=== PATIENT | female | born 1950 | race Caucasian/White ===

== ENCOUNTER 2020-02-18 13:02 | Emergency (ER) | payer MEDICARE, OTHER, SELFPAY ==
[2020-02-18 13:08] VITALS: BP 185/79; PULSE 87; RESP 18; TEMP 36.4; O2SAT 99; BMI 21.1
--- NOTE | 2020-02-18 13:26 | DI.RAD.S_ITS ---
PROCEDURE: XR CHEST 2V INDICATIONS: chest pain TECHNIQUE: 2 views of the chest were acquired. COMPARISON: None. FINDINGS: Surgical changes and devices: None. Lungs and pleura: Blunting of the posterior costophrenic angle on the lateral view it is evident. There is a transition of density identified within the retrocardiac region on the frontal view. Blunting of left costophrenic angle on the frontal view is also present. Mediastinum: Mediastinal contours are normal. Heart size is normal. Bones and chest wall: No suspicious bony abnormalities. Soft tissues appear unremarkable. IMPRESSION: Left basilar atelectasis versus pneumonia with an associated small effusion. Dictated by: Robby Munguia M.D. on 02/18/2020 at 13:16 Approved by: Robby Munguia M.D. on 02/18/2020 at 13:31
[2020-02-18 13:48] LABS: Add Manual Diff / Slide Review NO; Basophils Absolute Auto 0 /uL (0-100); Basophils Percent Auto 0.2 % (0-2); Eosinophils Absolute Auto 100 /uL (0-450); Eosinophils Percent Auto 0.7 % (2-4); Hematocrit 37.9 % (36-46); Hemoglobin 12.8 g/dL (12.0-16.0); Lymphocytes Absolute Auto 2200 /uL (1100-4500); Lymphocytes Percent Auto 29.3 % (25-40); Mean Corpuscular HGB Conc 33.7 % (30-36); Mean Corpuscular Hemoglobin 30.6 PG (26-34); Monocytes Absolute Auto 600 /uL (0-900); Monocytes Percent Auto 8.2 % (3-14); Neutrophils Absolute Auto 4600 /uL (1500-7000); Neutrophils Percent Auto 61.6 % (50-75); Platelet Count 316 X10^3/uL (150-400); Red Blood Cell Count 4.17 X10^6/uL (4.0-5.2); Red Cell Distribution Width 14.1 % (11.6-14.8); White Blood Cell Count 7.4 X10^3/uL (4.5-11.0)
--- NOTE | 2020-02-18 13:49 | ED_ITS ---
HPI - Arrhythmia/Palpitations <GRIFFIN Dominguez - Last Filed: 02/18/20 15:51> General Chief Complaint: Arrhythmia/Palpitations Stated Complaint: heart/ not beating right Time Seen by Provider: 02/18/20 13:08 Source: patient Mode of arrival: Ambulatory Limitations: no limitations History of Present Illness HPI narrative: The patient is a 69-year-old female current smoker of ?I do not t hink my heart is beating correctly.She states she believes this because she can no longer your her heartbeat. She states she has always been able to hear her heartbeat, though was not able to hear it starting yesterday morning. She denies any chest pain or shortness of breath. She feels as though she is very weak since she stopped being able to hear her heartbeat. She denies any abdominal pain nausea vomiting diarrhea cough congestion. She states that she was able to feel it when she put her hand on her chest, and she no longer can feel her heart beat. She states and sometimes her heart rhythm is regular and she has noticed swelling in her lower extremities and has been on and off for the past several months. Review of Systems <GRIFFIN Dominguez - Last Filed: 02/18/20 15:51> Review of Systems Narrative: GENERAL: Denies chills, fatigue, malaise, fever, sweats. HEENT: Denies sinus pain, ear pain, sore throat, difficulty swallowing, dizziness. RESPIRATORY: Denies dyspnea, cough, wheezing, hemoptysis, sputum. CARDIOVASCULAR: See HPI GASTROINTESTINAL: Denies nausea, vomiting, abdominal pain, diarrhea, constipation, melena. : Denies dysuria, frequency, incontinence, hematuria, urinary retention. MUSCULOSKELETAL: denies weakness, joint pain, or bony pain SKIN: Denies rash, skin lesions, or other NEUROLOGIC: Denies weakness, headache, numbness, change in speech, confusion, seizures, incoordination. PSYCHIATRIC: No concerning psychosocial issues. 12 point review of systems is negative except for those stated above Patient History <GUMARO Dominguez - Last Filed: 02/18/20 15:51> Social History Smoking Status: Current every day smoker Smoking Status: Current every day smoker alcohol intake frequency: 0-2 drinks per day Substance Use Type: does not use Exam <GUMARO Dominguez - Last Filed: 02/18/20 15:51> Narrative Exam Narrative: GENERAL: Thin female in no acute distress HEAD: Atraumatic. Normocephalic. No temporal or scalp tenderness. EYES: Pupils equal round and reactive. Extraocular motions intact. No scleral icterus. No injection or drainage. ENT: Nose without bleeding, purulent drainage or septal hematoma. Throat without erythema, tonsillar hypertrophy or exudate. Uvula midline. Airway patent. Bilateral TMs pearly buenrostro, slightly bulging with no erythema. NECK: Trachea midline. No JVD or lymphadenopathy Cardiac: regular rate and rhythm RESPIRATORY: Clear to auscultation. Breath sounds equal bilaterally. No wheezes, rales, or rhonchi. No cough. No increased respiratory effort. No accessory use. Speaking sentences. GASTROINTESTINAL: Abdomen soft, non-tender, nondistended. No hepato-splenomegaly, or palpable masses. No guarding. EXTREMITIES: No clubbing, cyanosis, or edema. No joint tenderness, effusion, or edema noted. BACK: Nontender without deformity or crepitance. No flank tenderness. NEURO: AOx3. SKIN: No rash or erythema. Initial Vital Signs Initial Vital Signs: Vital Signs Temperature 97.6 F 02/18/20 13:08 Pulse Rate 87 02/18/20 13:08 Respiratory Rate 18 02/18/20 13:08 Blood Pressure 185/79 H 02/18/20 13:08 Pulse Oximetry 99 02/18/20 13:08 <Maria G Brito DO - Last Filed: 02/18/20 16:02> Initial Vital Signs Initial Vital Signs: Vital Signs Temperature 97.6 F 02/18/20 13:08 Pulse Rate 87 02/18/20 13:08 Respiratory Rate 18 02/18/20 13:08 Blood Pressure 185/79 H 02/18/20 13:08 Pulse Oximetry 99 02/18/20 13:08 Course <GUMARO Dominguez - Last Filed: 02/18/20 15:51> Orders Ordered: ED Orders 02/18/20 13:18 Amylase Stat Complete Blood Count AUTO DIFF Stat Comprehensive Metabolic Panel Stat Lipase Stat NT-proBNP (BNP-Adult 18+) Stat Partial Thromboplastin Time Stat Prothrombin Time INR Stat Troponin & CK Cardiac Panel Stat 02/18/20 13:20 EKG-12 Lead Stat 02/18/20 13:26 XR chest 2V Stat Vital Signs Vital signs: Vital Signs - 8 hr 02/18/20 13:08 02/18/20 13:50 02/18/20 14:49 Temperature 97.6 F Pulse Rate 87 64 62 Respiratory Rate 18 12 18 Blood Pressure 185/79 H Blood Pressure [Left Arm] 146/67 H 142/70 H Pulse Oximetry 99 99 98 <Maria G Brito DO - Last Filed: 02/18/20 16:02> Orders Ordered: ED Orders 02/18/20 13:18 Amylase Stat Complete Blood Count AUTO DIFF Stat Comprehensive Metabolic Panel Stat Lipase Stat NT-proBNP (BNP-Adult 18+) Stat Partial Thromboplastin Time Stat Prothrombin Time INR Stat Troponin & CK Cardiac Panel Stat 02/18/20 13:20 EKG-12 Lead Stat 02/18/20 13:26 XR chest 2V Stat Vital Signs Vital signs: Vital Signs - 8 hr 02/18/20 13:08 02/18/20 13:50 02/18/20 14:49 Temperature 97.6 F Pulse Rate 87 64 62 Respiratory Rate 18 12 18 Blood Pressure 185/79 H Blood Pressure [Left Arm] 146/67 H 142/70 H Pulse Oximetry 99 99 98 MDM - Arrhythmia/Palpitations <GRIFFIN DominguezBC - Last Filed: 02/18/20 15:51> Lab Data Result diagrams: 02/18/20 13:18 02/18/20 13:18 Labs: Lab Results 02/18/20 02/18/20 02/18/20 Range/Units 13:18 13:18 13:18 WBC 7.4 (4.5-11.0) X10^3/uL RBC 4.17 (4.0-5.2) X10^6/uL Hgb 12.8 (12.0-16.0) g/dL Hct 37.9 (36-46) % MCV 91.0 (80-100) fL MCH 30.6 (26-34) PG MCHC 33.7 (30-36) % RDW 14.1 (11.6-14.8) % Plt Count 316 (150-400) X10^3/uL Neut % (Auto) 61.6 (50-75) % Lymph % (Auto) 29.3 (25-40) % [place] % (Auto) 8.2 (3-14) % Eos % (Auto) 0.7 L (2-4) % Baso % (Auto) 0.2 (0-2) % Neut # (Auto) 4600 (3842-5279) /uL Lymph # (Auto) 2200 (8050-3038) /uL [place] # (Auto) 600 (0-900) /uL Eos # (Auto) 100 (0-450) /uL Baso # (Auto) 0 (0-100) /uL PT 12.1 (10.1-12.7) SECONDS INR 1.1 (0.9-1.3) APTT 36 (26.4-36.2) SECONDS Sodium (137-145) mmol/L Potassium (3.4-5.1) mmol/L Chloride (98-107) mmol/L Carbon Dioxide (22-32) mmol/L BUN (7-17) mg/dL Creatinine (0.52-1.04) mg/dL Estimated GFR (>60) mL/min BUN/Creatinine Ratio (6-22) Glucose (80-110) mg/dL Calcium (8.4-10.2) mg/dL Total Bilirubin (0.2-1.3) mg/dL AST (14-36) IU/L ALT (<35) IU/L Alkaline Phosphatase (38-126) U/L Total Creatine Kinase (30-135) U/L CK-MB (CK-2) CK-MB (CK-2) Rel Index Troponin I (0.01-0.034) ng/mL NT-Pro-B Natriuret Pep 70 (<125) pg/mL Total Protein (6.3-8.2) g/dL Albumin (3.5-5.0) g/dL Globulin (1.7-4.1) g/dL Albumin/Globulin Ratio (1.0-2.8) Amylase (30-110) U/L Lipase (23-300) U/L 02/18/20 02/18/20 Range/Units 13:18 13:18 WBC (4.5-11.0) X10^3/uL RBC (4.0-5.2) X10^6/uL Hgb (12.0-16.0) g/dL Hct (36-46) % MCV (80-100) fL MCH (26-34) PG MCHC (30-36) % RDW (11.6-14.8) % Plt Count (150-400) X10^3/uL Neut % (Auto) (50-75) % Lymph % (Auto) (25-40) % [place] % (Auto) (3-14) % Eos % (Auto) (2-4) % Baso % (Auto) (0-2) % Neut # (Auto) (8244-5119) /uL Lymph # (Auto) (8002-5434) /uL [place] # (Auto) (0-900) /uL Eos # (Auto) (0-450) /uL Baso # (Auto) (0-100) /uL PT (10.1-12.7) SECONDS INR (0.9-1.3) APTT (26.4-36.2) SECONDS Sodium 130 L (137-145) mmol/L Potassium 3.6 (3.4-5.1) mmol/L Chloride 94 L (98-107) mmol/L Carbon Dioxide 30 (22-32) mmol/L BUN 8 (7-17) mg/dL Creatinine 0.49 L (0.52-1.04) mg/dL Estimated GFR > 60.0 (>60) mL/min BUN/Creatinine Ratio 16.3 (6-22) Glucose 120 H (80-110) mg/dL Calcium 9.4 (8.4-10.2) mg/dL Total Bilirubin 0.6 (0.2-1.3) mg/dL AST 25 (14-36) IU/L ALT 13 (<35) IU/L Alkaline Phosphatase 89 (38-126) U/L Total Creatine Kinase 61 (30-135) U/L CK-MB (CK-2) TNP CK-MB (CK-2) Rel Index TNP Troponin I < 0.012 (0.01-0.034) ng/mL NT-Pro-B Natriuret Pep (<125) pg/mL Total Protein 7.3 (6.3-8.2) g/dL Albumin 4.3 (3.5-5.0) g/dL Globulin 3.0 (1.7-4.1) g/dL Albumin/Globulin Ratio 1.4 (1.0-2.8) Amylase 67 (30-110) U/L Lipase 37 (23-300) U/L Imaging Data Chest x-ray: Radiologist's Impresson: [address] [place] [id number] XRay Report Signed Patient: Kirstin Cruz [facility]#: [id number] : 2Acct:[id number] Age/Sex: 69 / FDate of Service: 02/18/20 Loc: ED Accession Number: [id number] Procedure: XR chest 2V Ordering Provider: Maria G Desai PROCEDURE: XR CHEST 2V INDICATIONS: chest pain TECHNIQUE: 2 views of the chest were acquired. COMPARISON: None. FINDINGS: Surgical changes and devices: None. Lungs and pleura: Blunting of the posterior costophrenic angle on the lateral view it is evident. There is a transition of density identified within the retrocardiac region on the frontal view. Blunting of left costophrenic angle on the frontal view is also present. Mediastinum: Mediastinal contours are normal. Heart size is normal. Bones and chest wall: No suspicious bony abnormalities. Soft tissues appear unremarkable. IMPRESSION: Left basilar atelectasis versus pneumonia with an associated small effusion. Dictated by: Robby Munguia M.D. on 02/18/2020 at 13:16 Approved by: Robby Munguia M.D. on 02/18/2020 at 13:31 ECG Data Attestation: I personally reviewed and interpreted this ECG as follows: Interpretation: Sinus rhythm. Ventricular rate 69. P.r. interval 158. QRS 91. No ectopy noted. viewed by Dr Alisha BEE Narrative Medical decision making narrative: The patient is a 69-year-old female who presents with a chief complaint of ?I can no longer here my heartbeat in my ears.The patient has a normal EKG, negative troponin, negative BNP and is no acute distress throughout her stay in the emergency department. Her chest x-ray is concerning of left lower atelectasis versus pneumonia; given that she has no shortness of breath, no cough, no productive cough over believe it is atelectasis. She has been hemodynamically stable, normotensive, oxygenating well and a normal sinus rhythm. I cannot exactly specify why she no longer hears her heartbeat, but evaluation today helps rule out any acute cardiac dysfunction. She does have some bulging with her tympanic membranes, low no erythema cell not treat for otitis media at this point time. I discussed that using NeilMed sinus rinse, Flonase etcetera to decrease pressure might be bene ficial. The patient adamantly states that she does not want to take any medications if she does not need to. The patient appears to be somewhat dissatisfied that I am not able to specifically identify why she can no longer here for heartbeat. I discussed at length the importance of following up with primary care provider in the next few days. Discussed coming back to the emergency department for any acute concerns such as chest pain, shortness of breath etcetera. <Maria G Brito, DO - Last Filed: 02/18/20 16:02> Lab Data Labs: Lab Results 02/18/20 02/18/20 02/18/20 Range/Units 13:18 13:18 13:18 WBC 7.4 (4.5-11.0) X10^3/uL RBC 4.17 (4.0-5.2) X10^6/uL Hgb 12.8 (12.0-16.0) g/dL Hct 37.9 (36-46) % MCV 91.0 (80-100) fL MCH 30.6 (26-34) PG MCHC 33.7 (30-36) % RDW 14.1 (11.6-14.8) % Plt Count 316 (150-400) X10^3/uL Neut % (Auto) 61.6 (50-75) % Lymph % (Auto) 29.3 (25-40) % [place] % (Auto) 8.2 (3-14) % Eos % (Auto) 0.7 L (2-4) % Baso % (Auto) 0.2 (0-2) % Neut # (Auto) 4600 (0162-5513) /uL Lymph # (Auto) 2200 (6103-7396) /uL [place] # (Auto) 600 (0-900) /uL Eos # (Auto) 100 (0-450) /uL Baso # (Auto) 0 (0-100) /uL PT 12.1 (10.1-12.7) SECONDS INR 1.1 (0.9-1.3) APTT 36 (26.4-36.2) SECONDS Sodium (137-145) mmol/L Potassium (3.4-5.1) mmol/L Chloride (98-107) mmol/L Carbon Dioxide (22-32) mmol/L BUN (7-17) mg/dL Creatinine (0.52-1.04) mg/dL Estimated GFR (>60) mL/min BUN/Creatinine Ratio (6-22) Glucose (80-110) mg/dL Calcium (8.4-10.2) mg/dL Total Bilirubin (0.2-1.3) mg/dL AST (14-36) IU/L ALT (<35) IU/L Alkaline Phosphatase (38-126) U/L Total Creatine Kinase (30-135) U/L CK-MB (CK-2) CK-MB (CK-2) Rel Index Troponin I (0.01-0.034) ng/mL NT-Pro-B Natriuret Pep 70 (<125) pg/mL Total Protein (6.3-8.2) g/dL Albumin (3.5-5.0) g/dL Globulin (1.7-4.1) g/dL Albumin/Globulin Ratio (1.0-2.8) Amylase (30-110) U/L Lipase (23-300) U/L 02/18/20 02/18/20 Range/Units 13:18 13:18 WBC (4.5-11.0) X10^3/uL RBC (4.0-5.2) X10^6/uL Hgb (12.0-16.0) g/dL Hct (36-46) % MCV (80-100) fL MCH (26-34) PG MCHC (30-36) % RDW (11.6-14.8) % Plt Count (150-400) X10^3/uL Neut % (Auto) (50-75) % Lymph % (Auto) (25-40) % [place] % (Auto) (3-14) % Eos % (Auto) (2-4) % Baso % (Auto) (0-2) % Neut # (Auto) (9703-8978) /uL Lymph # (Auto) (6355-7049) /uL [place] # (Auto) (0-900) /uL Eos # (Auto) (0-450) /uL Baso # (Auto) (0-100) /uL PT (10.1-12.7) SECONDS INR (0.9-1.3) APTT (26.4-36.2) SECONDS Sodium 130 L (137-145) mmol/L Potassium 3.6 (3.4-5.1) mmol/L Chloride 94 L (98-107) mmol/L Carbon Dioxide 30 (22-32) mmol/L BUN 8 (7-17) mg/dL Creatinine 0.49 L (0.52-1.04) mg/dL Estimated GFR > 60.0 (>60) mL/min BUN/Creatinine Ratio 16.3 (6-22) Glucose 120 H (80-110) mg/dL Calcium 9.4 (8.4-10.2) mg/dL Total Bilirubin 0.6 (0.2-1.3) mg/dL AST 25 (14-36) IU/L ALT 13 (<35) IU/L Alkaline Phosphatase 89 (38-126) U/L Total Creatine Kinase 61 (30-135) U/L CK-MB (CK-2) TNP CK-MB (CK-2) Rel Index TNP Troponin I < 0.012 (0.01-0.034) ng/mL NT-Pro-B Natriuret Pep (<125) pg/mL Total Protein 7.3 (6.3-8.2) g/dL Albumin 4.3 (3.5-5.0) g/dL Globulin 3.0 (1.7-4.1) g/dL Albumin/Globulin Ratio 1.4 (1.0-2.8) Amylase 67 (30-110) U/L Lipase 37 (23-300) U/L Discharge Plan Departure Patient Disposition: Home Clinical Impression: Feared complaint without diagnosis Discharge Date/Time: 02/18/20 15:18 Instructions: DI for Palpitations Activity Restrictions/Additional Instructions: Thank you for trusting us with your care today. It is unclear can no longer hear your heart beat. However your cardiac workup today in the emergency department came back normal. Your EKG is normal there is no indication of any heart attack or heart failure. Your electrolytes are normal. Your heart rhythm has been normal in the emergency department. Please follow-up with primary care provider in the next few days. Please come back to the emergency department for any acute concerns such as concern of heart attack, stroke. Regarding the pressure in your ears, I suggest a Yonny med sinus rinse or Neti pot with Flonase. Referrals: Tin Rowley MD [Family Provider] - Tin Noland MD [Primary Care Provider] -
[2020-02-18 13:50] VITALS: BP 146/67; PULSE 64; RESP 12; O2SAT 99
[2020-02-18 13:56] LABS: INR 1.1 (0.9-1.3); Prothrombin Time 12.1 SECONDS (10.1-12.7)
[2020-02-18 13:58] LABS: PTT Partial Thromboplastin Tim 36 SECONDS (26.4-36.2)
[2020-02-18 13:59] LABS: Alanine Aminotransferase 13 IU/L (<35); Albumin 4.3 g/dL (3.5-5.0); Albumin Globulin Ratio 1.4 (1.0-2.8); Alkaline Phosphatase 89 U/L (38-126); Amylase 67 U/L (30-110); Aspartate Aminotransferase 25 IU/L (14-36); BUN Creatinine Ratio 16.3 (6-22); Bilirubin Total 0.6 mg/dL (0.2-1.3); Blood Urea Nitrogen 8 mg/dL (7-17); Calcium 9.4 mg/dL (8.4-10.2); Carbon Dioxide 30 mmol/L (22-32); Chloride 94 mmol/L (98-107); Creatine Kinase 61 U/L (30-135); Estimated Glomerular Filt Rate > 60.0 mL/min (>60); Glucose 120 mg/dL (80-110); HEMOLYSIS < 15 (0-50); Lipase 37 U/L (23-300); Potassium 3.6 mmol/L (3.4-5.1); Sodium 130 mmol/L (137-145); Total Protein 7.3 g/dL (6.3-8.2)
[2020-02-18 14:08] LABS: NT-proBNP (BNP-Adult 18+) 70 pg/mL (<125)
[2020-02-18 14:10] LABS: Troponin I < 0.012 ng/mL (0.01-0.034)
[2020-02-18 14:49] VITALS: BP 142/70; PULSE 62; RESP 18; O2SAT 98
== END 2020-02-18 15:18 | disposition home or self-care (01) ==
PROVIDERS: Emergency Provider Nurse Practitioner Family; Family Provider Family Medicine; PCP Family Medicine
DX: R00.2 Palpitations (principal)
CPT/HCPCS: 36415; 71046; 80053; 82150; 82550; 83690; 83880; 84484; 85025; 85610; 85730; 93005; 99284

== ENCOUNTER 2022-08-05 09:55 | Emergency (ER) | payer MEDICARE, OTHER, SELFPAY ==
[2022-08-05] VITALS (9 sets, daily range): BP systolic 146–179; BP diastolic 63–81; PULSE 65–101; RESP 12–21; TEMP 36.7; O2SAT 97–100; BMI 24.3
--- NOTE | 2022-08-05 10:07 | DI.RAD.S_ITS ---
PROCEDURE: XR CHEST 1V INDICATIONS: chest pain TECHNIQUE: One view of the chest was acquired. COMPARISON: [facility], CR, XR CHEST 2V, 02/18/2020, 13:24. FINDINGS: Surgical changes and devices: None. Lungs and pleura: Lungs are clear. No pleural effusions or pneumothorax. Mediastinum: Mediastinal contours appear normal. Heart size is normal. Bones and chest wall: No suspicious bony lesions. Overlying soft tissues appear unremarkable. Possible remote left humeral head neck fracture, not overtly changed in appearance. IMPRESSION: No acute cardiopulmonary abnormality. Dictated by: Shiv Campos M.D. on 08/05/2022 at 11:14 Approved by: Shiv Campos M.D. on 08/05/2022 at 11:16
--- NOTE | 2022-08-05 10:13 | ED_ITS ---
HPI - Arrhythmia/Palpitations General Chief Complaint: Arrhythmia/Palpitations Stated Complaint: Rapid heart rate Time Seen by Provider: 08/05/22 10:13 Source: patient Mode of arrival: Ambulatory History of Present Illness HPI narrative: 72-year-old woman with no significant medical problems presents complaining that ?her heart is a little off?. She notes that the sound for heart is a bit muffled and seems slow. She awoke today and felt that it was rapid. She currently feels that it is rapid and on telemetry she is in sinus rhythm at a rate of 80. This morning she had some dizziness and lightheadedness associated with the rapid heart rate. She lives in [facility] and since the [facility] closed about a year and half ago she has not had any primary care follow-up. She does note that she tends to sit all day and then her ankles are mildly edematous, when she gets home she puts her feet up which means that she is not getting as much exercise as she believes she should. She currently takes omeprazole but denies any blood pressure issues although she also does not regularly check blood pressure. She describes no headache, chest pain, cough, fevers, vomiting, diarrhea, nausea, abdominal pain. Related Data Allergies Allergy/AdvReac Type Severity Reaction Status Date / Time Penicillins Allergy Verified 08/05/22 10:07 Review of Systems Review of Systems Narrative: Remainder of complete review of systems is otherwise unremarkable except for that included in the HPI. Patient History Social History Smoking Status: Current every day smoker Smoking Status: Current every day smoker alcohol intake frequency: 0-2 drinks per day Substance Use Type: does not use Exam Initial Vital Signs Initial Vital Signs: Vital Signs Temperature 98.1 F 08/05/22 10:02 Pulse Rate 86 08/05/22 10:02 Respiratory Rate 21 08/05/22 10:02 Blood Pressure 173/81 H 08/05/22 10:02 Pulse Oximetry 100 08/05/22 10:02 Oxygen Delivery Method 08/05/22 10:02 General: Healthy appearing, in no acute distress. Able to give a complete and coherent history. Well-nourished well-developed HEENT: Moist mucous membranes, normal sclera with reactive pupils, Neck: No JVD, supple Respiratory: Lungs are clear to auscultation, no wheezing no rales no rhonchi. Full and symmetrical air movement Cardiac: Regular rate and rhythm no murmurs no bruits Abdomen: Soft, nontender, good bowel tones, no flank pain Skin: Warm and dry, no rashes Neurologic: Grossly neurologically intact with no obvious asymmetries or abnormalities Extremities: No trauma, well perfused Psych: Cooperative, appropriate insight and affect Course Orders Ordered: ED Orders 08/05/22 10:07 XR chest 1V Stat EKG-12 Lead Stat 08/05/22 10:12 Complete Blood Count AUTO DIFF Stat Comprehensive Metabolic Panel Stat Lipase Stat Magnesium Stat Partial Thromboplastin Time Stat Prothrombin Time INR Stat Troponin & CK Cardiac Panel Stat Vital Signs Vital signs: Vital Signs - 8 hr 08/05/22 10:02 08/05/22 10:03 08/05/22 10:04 Temperature 98.1 F Pulse Rate 86 101 H Respiratory Rate 21 Blood Pressure 173/81 H 173/81 H Pulse Oximetry 100 98 Oxygen Delivery Method Room Air 08/05/22 10:04 08/05/22 10:13 08/05/22 10:13 Temperature Pulse Rate 101 H 92 H Respiratory Rate 20 Blood Pressure 179/80 H Pulse Oximetry 98 98 Oxygen Delivery Method 08/05/22 10:30 08/05/22 10:30 08/05/22 11:00 Temperature Pulse Rate 78 Respiratory Rate 19 Blood Pressure 146/66 H 154/67 H Pulse Oximetry 98 Oxygen Delivery Method 08/05/22 11:00 Temperature Pulse Rate 71 Respiratory Rate 16 Blood Pressure Pulse Oximetry 98 Oxygen Delivery Method MDM - Arrhythmia/Palpitations Lab Data Result diagrams: 08/05/22 10:12 08/05/22 10:12 Labs: Lab Results 08/05/22 08/05/22 08/05/22 Range/Units 10:12 10:12 10:12 WBC 7.7 (4.5-11.0) X10^3/uL RBC 4.17 (4.0-5.2) X10^6/uL Hgb 13.1 (12.0-16.0) g/dL Hct 38.6 (36-46) % MCV 92.7 (80-100) fL MCH 31.5 (26-34) PG MCHC 34.0 (30-36) % RDW 13.2 (11.6-14.8) % Plt Count 344 (150-400) X10^3/uL Neut % (Auto) 66.7 (50-75) % Lymph % (Auto) 23.7 L (25-40) % [place] % (Auto) 8.6 (3-14) % Eos % (Auto) 0.5 L (2-4) % Baso % (Auto) 0.5 (0-2) % Neut # (Auto) 5100 (7984-2483) /uL Lymph # (Auto) 1800 (9670-9831) /uL [place] # (Auto) 700 (0-900) /uL Eos # (Auto) 0 (0-450) /uL Baso # (Auto) 0 (0-100) /uL PT 11.3 (10.1-12.7) SECONDS INR 1.0 (0.9-1.3) APTT 34 (26-36) SECONDS Sodium 134 L (137-145) mmol/L Potassium 4.2 (3.4-5.1) mmol/L Chloride 96 L (98-107) mmol/L Carbon Dioxide 30 (22-32) mmol/L BUN 12 (7-17) mg/dL Creatinine 0.54 (0.52-1.04) mg/dL Estimated GFR > 60 (>60) mL/min BUN/Creatinine Ratio 22.2 H (6-22) Glucose 150 H (80-110) mg/dL Calcium 9.2 (8.4-10.2) mg/dL Magnesium 2.0 (1.6-2.3) mg/dL Total Bilirubin 0.3 (0.2-1.3) mg/dL AST 23 (14-36) IU/L ALT 17 (<35) IU/L Alkaline Phosphatase 109 (38-126) U/L Total Creatine Kinase 70 (30-135) U/L CK-MB (CK-2) TNP CK-MB (CK-2) Rel Index TNP Troponin I < 0.012 (0.01-0.034) ng/mL Total Protein 7.6 (6.3-8.2) g/dL Albumin 4.1 (3.5-5.0) g/dL Globulin 3.5 (1.7-4.1) g/dL Albumin/Globulin Ratio 1.2 (1.0-2.8) Lipase 37 (23-300) U/L Imaging Data Chest x-ray: Radiologist's Impresson: FINDINGS:? ? Surgical changes and devices:? None.? ? Lungs and pleura:? Lungs are clear.? No pleural effusions or pneumothorax.? ? Mediastinum:? Mediastinal contours appear normal.? Heart size is normal.? ? Bones and chest wall:? No suspicious bony lesions.? Overlying soft tissues appear unremarkable.? Possible remote left humeral head neck fracture, not overtly changed in appearance. ? IMPRESSION:? No acute cardiopulmonary abnormality. ? ? Dictated by: Shiv Campos M.D. on 08/05/2022 at 11:14 ? ? ECG Data Interpretation: Sinus rhythm at a rate of 85 Normal intervals, normal axis Normal EKG MDM Narrative Medical decision making narrative: 72-year-old woman with completely unremarkable exam, normal chest x-ray labs EKG concerned that her heart is somewhat muffled and that she had a fast rate this morning. Given the fact that she feels her rate of 80 is also fast is difficult to determine what she may have been experiencing. She may well benefit from a Zio patch but will need to establish care with a primary care physician to discuss that further. Discharge Plan Departure Patient Disposition: Home Clinical Impression: Palpitations Instructions: DI for Arrhythmias Activity Restrictions/Additional Instructions: Thank you for coming in today Your workup today was very reassuring. I do not see any suggestion of pathologic heart rhythms or even significant heart rhythm abnormality, heart attack, congestive heart failure, infection, lung or pulmonary abnormalities or any electrolyte, kidney or liver abnormalities on blood work. At this time I do not have an explanation for the sensation that you are having with your heart pounding. I would encourage you to establish care with a new primary care doctor. When checking in with a new clinic on or [place], you might mention that you are in the emergency department need an ER follow-up and they may be able to help you with that sooner than with a full new patient intake exam. If you find that you are getting worse or develop any new symptoms, please feel free to return to the emergency department for further evaluation.
[2022-08-05 10:17] LABS: Add Manual Diff / Slide Review NO; Basophils Absolute Auto 0 /uL (0-100); Basophils Percent Auto 0.5 % (0-2); Eosinophils Absolute Auto 0 /uL (0-450); Eosinophils Percent Auto 0.5 % (2-4); Hematocrit 38.6 % (36-46); Hemoglobin 13.1 g/dL (12.0-16.0); Lymphocytes Absolute Auto 1800 /uL (1100-4500); Lymphocytes Percent Auto 23.7 % (25-40); Mean Corpuscular Hemoglobin 31.5 PG (26-34); Mean Corpuscular Volume 92.7 fL (80-100); Monocytes Absolute Auto 700 /uL (0-900); Monocytes Percent Auto 8.6 % (3-14); Neutrophils Absolute Auto 5100 /uL (1500-7000); Neutrophils Percent Auto 66.7 % (50-75); Platelet Count 344 X10^3/uL (150-400); Red Blood Cell Count 4.17 X10^6/uL (4.0-5.2); Red Cell Distribution Width 13.2 % (11.6-14.8); White Blood Cell Count 7.7 X10^3/uL (4.5-11.0)
--- NOTE | 2022-08-05 10:20 | PC.NURSE ---
Patient states that the the strong beating have been going on for several weeks but I never felt like it was bad enough that I should be seen. Patient unable to give specific date.
[2022-08-05 10:26] LABS: Prothrombin Time 11.3 SECONDS (10.1-12.7)
[2022-08-05 10:28] LABS: PTT Partial Thromboplastin Tim 34 SECONDS (26-36)
[2022-08-05 10:32] LABS: Alanine Aminotransferase 17 IU/L (<35); Albumin 4.1 g/dL (3.5-5.0); Albumin Globulin Ratio 1.2 (1.0-2.8); Alkaline Phosphatase 109 U/L (38-126); Aspartate Aminotransferase 23 IU/L (14-36); BUN Creatinine Ratio 22.2 (6-22); Bilirubin Total 0.3 mg/dL (0.2-1.3); Blood Urea Nitrogen 12 mg/dL (7-17); Calcium 9.2 mg/dL (8.4-10.2); Carbon Dioxide 30 mmol/L (22-32); Chloride 96 mmol/L (98-107); Creatine Kinase 70 U/L (30-135); Estimated Glomerular Filt Rate > 60 mL/min (>60); Globulin 3.5 g/dL (1.7-4.1); Glucose 150 mg/dL (80-110); HEMOLYSIS < 15 (0-50); Lipase 37 U/L (23-300); Potassium 4.2 mmol/L (3.4-5.1); Sodium 134 mmol/L (137-145); Total Protein 7.6 g/dL (6.3-8.2)
[2022-08-05 10:44] LABS: Troponin I < 0.012 ng/mL (0.01-0.034)
== END 2022-08-05 12:42 | disposition home or self-care (01) ==
PROVIDERS: Emergency Provider Emergency Medicine; Family Provider Family Medicine
DX: R00.2 Palpitations (principal); R42 Dizziness and giddiness
CPT/HCPCS: 36415; 71045; 80053; 82550; 83690; 83735; 84484; 85025; 85610; 85730; 93005; 93010; 99283; 99284

== ENCOUNTER → 2022-08-13 10:29 | Outpatient (CLI) | payer MEDICARE, OTHER, SELFPAY ==
[2022-08-13 19:21] LABS: Alanine Aminotransferase 16 IU/L (<35); Albumin 4.2 g/dL (3.5-5.0); Albumin Globulin Ratio 1.4 (1.0-2.8); Alkaline Phosphatase 108 U/L (38-126); Aspartate Aminotransferase 26 IU/L (14-36); BUN Creatinine Ratio 21.4 (6-22); Bilirubin Total 0.4 mg/dL (0.2-1.3); Blood Urea Nitrogen 12 mg/dL (7-17); Calcium 9.6 mg/dL (8.4-10.2); Carbon Dioxide 30 mmol/L (22-32); Chloride 97 mmol/L (98-107); Cholesterol 240 mg/dL (140-199); Estimated Glomerular Filt Rate > 60 mL/min (>60); Globulin 3.1 g/dL (1.7-4.1); Glucose 98 mg/dL (80-110); HDL Cholesterol 59 mg/dL (40-60); HEMOLYSIS < 15 (0-50); LDL Cholesterol Calculated 159 mg/dL (<100); Potassium 4.4 mmol/L (3.4-5.1); Sodium 135 mmol/L (137-145); Total Protein 7.3 g/dL (6.3-8.2); Triglycerides 111 mg/dL (35-150)
[2022-08-13 19:51] LABS: TSH w/ Reflex to FT4 2.61 uIU/mL (0.47-4.68)
== END ==
PROVIDERS: Family Provider Family Medicine; PCP Physician Assistant; Visit Provider Physician Assistant
DX: E87.8 Other disorders of electrolyte and fluid balance, not elsewhere classified (principal); Z09 Encounter for follow-up examination after completed treatment for conditions other than malignant neoplasm; Z13.6 Encounter for screening for cardiovascular disorders; R00.2 Palpitations
CPT/HCPCS: 80053; 80061; 83735; 84443